=== PATIENT | male | born 1985 | race African-American/Black ===

== ENCOUNTER 2016-07-12 20:49 | Emergency (ER) | payer OTHER ==
[~2016-07-12] VITALS: Ht 180.3 cm; Wt 77.1 kg
[~2016-07-12 20:49] MED LIST: ACYCLOVIR400 MG ORAL; NKM
[2016-07-12] MEDS ORDERED: AMOXICILLIN875 MG PO (21:44)
[2016-07-12] MEDS ORDERED: DEBROX15 M1 BOTH EARS (21:44)
[2016-07-12 21:52] VITALS: BP 134/80
[2016-07-12 21:54] VITALS: BP 134/80
--- NOTE | 2016-07-13 05:43 | Emergency Room Report ---
History of Present Illness General Chief Complaint: Earache Source: Patient Present Illness HPI 31YOM with 2 days "left ear clogged" with pain. Denies Qtip use, trauma. Cleans ears with "a rag." Denies fever/chills, drainage from ear. Allergies: Coded Allergies: No Known Allergies (Unverified , 12/30/14) Patient History Past Medical History: none Past Surgical History: none Pertinent Family History: none Social History: Denies: alcohol use, drug use, smoking Immunizations: UTD Reviewed Nursing Documentation: PMH: Agreed, PSxH: Agreed Nursing Documentation-PMH Hx Asthma: Yes Review of Systems All Other Systems: negative except mentioned in HPI Physical Exam Vital Signs Date Time Temp Pulse Resp B/P Pulse Ox O2 Delivery O2 Flow Rate FiO2 07/12/16 21:02 98.1 78 16 134/80 100 Sp02 EP Interpretation: reviewed, normal General Appearance: normal inspection, well appearing, no apparent distress, alert, GCS 15, non-toxic Head: normocephalic, atraumatic Eyes: bilateral eye EOMI, bilateral eye PERRL ENT: normal ENT inspection, hearing grossly normal, normal pharynx, no angioedema, normal voice, other - Bilateral TMs with impacted cerumen. Left canal erythematous Neck: normal inspection, full range of motion, supple, no bony tend Respiratory: normal inspection, lungs clear, normal breath sounds, no respiratory distress, no retraction, no wheezing Cardiovascular #1: regular rate, rhythm, no edema Gastrointestinal: normal inspection, normal bowel sounds, non tender, soft, no guarding, no hernia Genitourinary: no CVA tenderness Musculoskeletal: normal inspection, back normal, normal range of motion, Keiko' s Sign negative Neurologic: normal inspection, alert, oriented x3, responsive, multifocal button generator III-XII nml as tested, speech normal Psychiatric: normal inspection, judgement/insight normal, mood/affect normal Skin: normal inspection Medical Decision Making Diagnostic Impression: Primary Impression: Earache, left Additional Impression: Otitis media, left Qualified Codes: H65.192 - Other acute nonsuppurative otitis media, left ear ER Course Bilateral impacted cerumen Patient declined my offer to currette our cerumen Rx Debrox, ABx for left otitis media Advised patient to return to ER for recheck of ears this week DC home Last Vital Signs Date Time Temp Pulse Resp B/P Pulse Ox O2 Delivery O2 Flow Rate FiO2 07/12/16 21:54 98.1 16 134/80 100 07/12/16 21:52 88 Status: improved Disposition: HOME, SELF-CARE Condition: Improved Scripts Amoxicillin (AMOXICILLIN) 875 Mg Tablet 875 MG PO Q12H for 7 Days, TAB 0 Refills Prov: JOVAN ALEXANDER M.D. 07/12/16 Carbamide Peroxide (DEBROX) 15 Ml Drops 10 DROP BOTH EARS TWICE A DAY for 4 Days, ML 0 Refills Prov: JOVAN ALEXANDER M.D. 07/12/16 Referrals: [facility]P) Patient Instructions: Otitis Media, Adult Additional Instructions: - Use ear drops as prescribed - Take ALL antibiotics until finished - Return to ER to recheck ears JOVAN ALEXANDER M.D. Jul 13, 2016 05:43
== END 2016-07-12 21:55 | disposition home or self-care (01) ==
LOC: EMR 21:12
DX: H66.92 Otitis media, unspecified, left ear (principal); J45.909 Unspecified asthma, uncomplicated
CPT/HCPCS: 99284

== ENCOUNTER 2017-10-24 19:20 | Emergency (ER) | payer OTHER ==
[~2017-10-24] VITALS: Ht 180.3 cm; Wt 74.8 kg
[~2017-10-24 19:20] MED LIST changes: +AMOXICILLIN875 MG PO; +DEBROX15 M1 BOTH EARS
--- NOTE | 2017-10-24 20:04 | Emergency Room Report ---
History of Present Illness General Chief Complaint: Skin Rash/Abscess Source: Patient, Medical Record Present Illness HPI Pt. presents to the ED c/o Itching, swelling, and erythema of right forearm x 2 days. Denies fevers or chills. Pt. denies pain at this time. Pt. denies swollen tender lymph nodes. Denies lesions/rashes elsewhere on the body. Denies new medications or body washes or creams. Denies swelling of the lips, tongue , throat or airway. Denies wheezing, or shortness of breath. Denies recent travel , recent illness or ill contacts. denies blisters, oral lesions, or sloughing of the skin. Allergies: Coded Allergies: No Known Allergies (Unverified , 12/30/14) Patient History Past Medical History: see triage record Past Surgical History: none Pertinent Family History: none Reviewed Nursing Documentation: PMH: Agreed; PSxH: Agreed Nursing Documentation-PMH Hx Asthma: Yes Review of Systems All Other Systems: negative except mentioned in HPI Physical Exam Vital Signs Date Time Temp Pulse Resp B/P (MAP) Pulse Ox O2 Delivery O2 Flow Rate FiO2 10/24/17 19:39 98.0 78 18 148/86 97 98.1 Sp02 EP Interpretation: reviewed, normal General Appearance: no apparent distress, alert, GCS 15, non-toxic Head: normocephalic, atraumatic Eyes: bilateral eye normal inspection, bilateral eye PERRL ENT: hearing grossly normal, normal voice, other - no swelling of the lips or tongue Neck: full range of motion Respiratory: lungs clear, normal breath sounds, speaking full sentences Cardiovascular #1: regular rate, rhythm, normal capillary refill Musculoskeletal: back normal, gait/station normal, normal range of motion Neurologic: alert, oriented x3, responsive, motor strength/tone normal, sensory intact, speech normal, grossly normal Psychiatric: judgement/insight normal Skin: no rash, warm/dry, well hydrated, other - Discrete/isolated insect bites to the dorsum of the right forearm with surrounding erythema, increased temperature palpation in 7 cm diameter area. No crusting, blisters, vesicles. Medical Decision Making PA Attestation Dr. Arizmendi is my supervising Physician whom patient management has been discussed with. Diagnostic Impression: Primary Impression: Cellulitis Qualified Codes: L03.90 - Cellulitis, unspecified Additional Impression: Insect bite Qualified Codes: W57.XXXA - Bitten or stung by nonvenomous insect and other nonvenomous arthropods, initial encounter ER Course Pt. presents to the ED c/o Itching, swelling, and erythema of right forearm x 2 days. Denies fevers or chills. Pt. denies pain at this time. Pt. denies swollen tender lymph nodes. Denies lesions/rashes elsewhere on the body. Denies new medications or body washes or creams. Denies swelling of the lips, tongue , throat or airway. Denies wheezing, or shortness of breath. Denies recent travel , recent illness or ill contacts. denies blisters, oral lesions, or sloughing of the skin. Ddx considered but are not limited to cellulitis, scabies, insect bites, tic bites, spider bites, contact dermatitis, Drug reaction, allergic reaction, fungal infection, lice. Vital signs: are WNL, pt. is afebrile H&PE are most consistent with Discrete/isolated insect bites to the dorsum of the right forearm with surrounding erythema, increased temperature palpation in 7 cm diameter area. No crusting, blisters, vesicles. ORDERS: none required at this time, the diagnosis is clinical ED INTERVENTIONS: None required at this time. - Skin pen used to renee affected area on the forearm. pt. given return to ED precautions for worsening of current symptoms or new symptoms. DISCHARGE: At this time pt. is stable for d/c to home. Will provide printed patient care instructions, and any necessary prescriptions. Care plan and follow up instructions have been discussed with the patient prior to discharge. Last Vital Signs Date Time Temp Pulse Resp B/P (MAP) Pulse Ox O2 Delivery O2 Flow Rate FiO2 10/24/17 19:39 98.0 78 18 148/86 97 98.1 Disposition: HOME, SELF-CARE Condition: Stable Scripts Diphenhydramine Hcl (BENADRYL ALLERGY) 25 Mg Tablet 25 MG PO Q6HR for Itching, #20 TAB Prov: Aracelis Abdalla 10/24/17 Hydrocortisone (Hydrocortisone Cream 2.5%) Y Cream.appl 1 APPLIC TP BID, #28.3 GM Prov: Aracelis Abdalla 10/24/17 Trimethoprim/Sulfamethoxazole 160/800* (BACTRIM DS TABLET*) 1 Each Tablet 1 TAB ORAL TWICE A DAY for 7 Days, #14 TAB Prov: Aracelis Abdalla 10/24/17 Cephalexin* (KEFLEX*) 500 Mg Capsule 500 MG ORAL EVERY 12 HOURS for 7 Days, #14 CAP 0 Refills Prov: Aracelis Abdalla 10/24/17 Referrals: [facility] ([facility]P) Patient Instructions: Cellulitis, [id number], Insect Bite, [id number] Additional Instructions: Take medications as directed. Follow up with a Primary Care Provider in 3-5 days, even if your symptoms have resolved. --Please review list of primary care clinics, if you do not already have a primary care provider Return sooner to ED if new symptoms occur, or current symptoms become worse. - Please note that this Emergency Department Report was dictated using [employer] project manager technology software, occasionally this can lead to erroneous entry secondary to interpretation by the dictation equipment. Aracelis Abdalla Oct 24, 2017 20:04
[2017-10-24] MEDS ORDERED: HYDROCORTISONE30 G2 TP (20:05)
[2017-10-24] MEDS ORDERED: BENADRYL ALLERG25 M1 PO (20:05)
[2017-10-24] MEDS ORDERED: CEPHALEXIN500 MG ORAL (20:05)
[2017-10-24] MEDS ORDERED: BACTRIM DS TAB1 EAC1 ORAL (20:05)
[2017-10-24 21:17] VITALS: BP 148/86
== END 2017-10-24 21:17 | disposition home or self-care (01) ==
LOC: EMR 19:48
DX: S50.861A Insect bite (nonvenomous) of right forearm, initial encounter (principal); L03.113 Cellulitis of right upper limb; W57.XXXA Bitten or stung by nonvenomous insect and other nonvenomous arthropods, initial encounter; Y93.89 Activity, other specified; Y92.9 Unspecified place or not applicable; J45.909 Unspecified asthma, uncomplicated
CPT/HCPCS: 99284

== ENCOUNTER 2018-01-25 23:53 | Emergency (ER) | payer OTHER ==
[~2018-01-25] VITALS: Ht 180.3 cm; Wt 72.6 kg
[~2018-01-25 23:53] MED LIST changes: +BACTRIM DS TAB1 EAC1 ORAL; +BENADRYL ALLERG25 M1 PO; +CEPHALEXIN500 MG ORAL; +HYDROCORTISONE30 G2 TP
--- NOTE | 2018-01-26 00:20 | Emergency Room Report ---
History of Present Illness General Chief Complaint: Generalized Weakness Source: Patient Present Illness HPI Is a 32-year-old male with no past medical history. He presents with chief complaint of syncope in September his weakness. The syncope occurred and day and half ago. He was standing talking to his friend when he felt vision get blurry and then he had a brief syncopal episode. No injury. Since then he felt weak and tired. He had this problem previously. This would be his fifth episode. Usually go to the ER and was told that he is dehydrated. Most the time when he stands up quickly go to do something he would had a syncopal episode. Not associated with sports. No family history of sudden . Have not seen a healthcare educator. Allergies: Coded Allergies: No Known Allergies (Unverified , 12/30/14) Patient History Past Medical History: see triage record, old chart reviewed Past Surgical History: none Pertinent Family History: none Social History: Denies: smoking Immunizations: other Reviewed Nursing Documentation: PMH: Agreed; PSxH: Agreed Nursing Documentation-PMH Past Medical History: No History, Except For Hx Asthma: Yes Review of Systems Constitutional: Reports: weakness Eye: Denies: eye pain, blurred vision ENT: Denies: ear pain, nose congestion, throat swelling Respiratory: Denies: cough, shortness of breath Cardiovascular: Denies: chest pain, palpitations Gastrointestinal: Denies: abdominal pain, diarrhea, nausea, vomiting Musculoskeletal: Denies: back pain, joint pain Skin: Denies: rash Neurological: Denies: headache, numbness Endocrine: Denies: increased thirst, increased urine Hematologic/Lymphatic: Denies: easy bruising All Other Systems: negative except mentioned in HPI Physical Exam Vital Signs Date Time Temp Pulse Resp B/P (MAP) Pulse Ox O2 Delivery O2 Flow Rate FiO2 01/25/18 23:57 97.5 62 16 131/82 99 Room Air vitals normal Sp02 EP Interpretation: reviewed, normal General Appearance: well appearing, no apparent distress, alert Head: normocephalic, atraumatic Eyes: bilateral eye PERRL, bilateral eye EOMI ENT: hearing grossly normal, normal pharynx Neck: full range of motion, supple, no meningismus Respiratory: chest non-tender, lungs clear, normal breath sounds Cardiovascular #1: regular rate, rhythm, no murmur Gastrointestinal: normal bowel sounds, non tender, no mass, no organomegaly, no bruit, non-distended Musculoskeletal: back normal, gait/station normal, normal range of motion Psychiatric: mood/affect normal Skin: warm/dry Medical Decision Making Diagnostic Impression: Primary Impression: Episode of generalized weakness Additional Impression: Syncope Qualified Codes: R55 - Syncope and collapse ER Course Patient with syncope. No evidence of ACS, PE, dissection to name a few. He has no family history of sudden . He will need follow-up with his primary care doctor for referral to see a healthcare educator. EKG Diagnostic Results Rate: normal Rhythm: NSR ST Segments: no acute changes Rhythm Strip Diag. Results Rhythm Strip Time: 00:20 EP Interpretation: yes Rate: 60 Rhythm: NSR, no PVC's, no ectopy Last Vital Signs Date Time Temp Pulse Resp B/P (MAP) Pulse Ox O2 Delivery O2 Flow Rate FiO2 01/25/18 23:57 97.5 62 16 131/82 99 Room Air Status: improved Disposition: HOME, SELF-CARE Condition: Stable Patient Instructions: Weakness Additional Instructions: Increase fluids. Follow-up your doctor within a week. You will need a referral to see a healthcare educator for a Holter monitor and/or echocardiogram. No strenuous activity or sports until seen by healthcare educator. Favio Richards MD Jan 26, 2018 00:20
[2018-01-26 00:26] LABS: BASOPHILS % (AUTO) 0.9 % (0.0-2.0); EOSINOPHILS % (AUTO) 3.9 % (0.0-3.0); HEMATOCRIT 43.8 % (42.0-52.0); LYMPHOCYTES % (AUTO) 33.4 % (20.0-45.0); MEAN CORPUSCULAR VOLUME 89 FL (80-99); MONOCYTES % (AUTO) 12.4 % (1.0-10.0); NEUTROPHILS % (AUTO) 49.4 % (45.0-75.0); PLATELET COUNT 227 K/UL (150-450); RED BLOOD COUNT 4.95 M/UL (4.70-6.10); RED CELL DISTRIBUTION WIDTH 12.2 % (11.6-14.8); WHITE BLOOD COUNT 8.1 K/UL (4.8-10.8)
[2018-01-26 00:27] LABS: APPEARANCE,URINE CLEAR; BILIRUBIN, URINE NEGATIVE (NEGATIVE); GLUCOSE, URINE (UA) NEGATIVE (NEGATIVE); KETONES,URINE 1+ (NEGATIVE); LEUKOCYTE ESTERASE ,URINE 1+ (NEGATIVE); NITRITE,URINE NEGATIVE (NEGATIVE); PH,URINE 6 (4.5-8.0); PROTEIN,URINE 1+ (NEGATIVE); UROBILINOGEN,URINE 1 MG/DL (0.0-1.0)
[2018-01-26 00:28] LABS: COLOR,URINE YELLOW
[2018-01-26 00:35] LABS: ANION GAP 8 mmol/L (5-15); BLOOD UREA NITROGEN 15 mg/dL (7-18); CALCIUM 8.9 MG/DL (8.5-10.1); CARBON DIOXIDE 29 MMOL/L (21-32); CHLORIDE 102 MMOL/L (98-107); CREATININE 1.1 MG/DL (0.55-1.30); POTASSIUM 3.9 MMOL/L (3.5-5.1); SODIUM 139 MMOL/L (136-145)
[2018-01-26 01:00] VITALS: BP 129/76
[2018-01-26 01:21] VITALS: BP 131/82
--- NOTE | 2018-01-28 15:18 | Cardiology Report ---
APPROVED REPORT EKG Measurement Heart [id number] MD [id number] Normal sinus rhythm with sinus arrhythmia Voltage criteria for left ventricular hypertrophy Abnormal ECG
== END 2018-01-26 01:26 | disposition home or self-care (01) ==
LOC: EMR 01-26 00:14
DX: R53.1 Weakness (principal); R55 Syncope and collapse; J45.909 Unspecified asthma, uncomplicated
CPT/HCPCS: 36415; 80048; 81001; 85025; 93005; 96360; 99284

== ENCOUNTER 2018-02-08 17:44 | Emergency (ER) | payer OTHER ==
[~2018-02-08] VITALS: Ht 180.3 cm; Wt 77.1 kg
[2018-02-08] MEDS ORDERED: NKM (17:53)
[2018-02-08 17:57] VITALS: BP 126/77
[2018-02-08] MEDS ORDERED: ACYCLOVIR400 MG ORAL (18:00)
--- NOTE | 2018-02-08 18:00 | Emergency Room Report ---
History of Present Illness General Chief Complaint: male urogenital problem Present Illness HPI 32-year-old male patient presents ER complaining of herpes outbreak on his genitalia. Reports history of similar symptoms in the past. States current outbreak began 2 days ago. Reports headache lesions on penis. Denies dysuria, hematuria, penile discharge. Reports assess for STI 2 months ago, results were negative. Requesting herpes medication. Denies fever, chest pain, shortness breath, abdominal pain. Reports no recent sexual activity. Allergies: Coded Allergies: No Known Allergies (Unverified , 12/30/14) Patient History Past Medical History: see triage record Reviewed Nursing Documentation: PMH: Agreed; PSxH: Agreed Nursing Documentation-PMH Hx Asthma: Yes Review of Systems All Other Systems: negative except mentioned in HPI Physical Exam Vital Signs Date Time Temp Pulse Resp B/P (MAP) Pulse Ox O2 Delivery O2 Flow Rate FiO2 02/08/18 17:50 98.4 89 16 126/77 96 Room Air Sp02 EP Interpretation: reviewed, normal General Appearance: well appearing, no apparent distress, alert, GCS 15, non- toxic Head: normocephalic, atraumatic Eyes: bilateral eye normal inspection, bilateral eye PERRL ENT: hearing grossly normal, normal pharynx, no angioedema, normal voice, uvula midline, moist mucus membranes Neck: full range of motion Respiratory: lungs clear, normal breath sounds, no rhonchi, no respiratory distress, no accessory muscle use, no wheezing, speaking full sentences Cardiovascular #1: regular rate, rhythm, no edema Genitourinary: no CVA tenderness, penis normal - uncircumcised, scrotum normal Musculoskeletal: back normal, digits/nails normal, gait/station normal, normal range of motion, non-tender Neurologic: alert, oriented x3, responsive, motor strength/tone normal, sensory intact Psychiatric: mood/affect normal Lymphatic: other - multiple small unroofed herpetic lesions at base of penis or scrotum, no active drainage, no surrounding erythema or edema, nontender to palpation, no chancre Medical Decision Making PA Attestation Dr. Weller is my supervising Physician whom patient management has been discussed with. Diagnostic Impression: Primary Impression: Herpes ER Course Pt. presents to the ED c/o herpes outbreak on genitalia. Ddx considered but are not limited to atopic dermatitis, herpes, syphilis, cellulitis. Vital signs: are WNL, pt. is afebrile ER COURSE: Physical exam consistent with obvious herpes outbreak. Provide patient with acyclovir discharge. ER precautions given. Wear condoms during sex. DISCHARGE: -Rx given for Acyclovir, 400mg TID x7 days. At this time pt. is stable for d/c to home. Patient is resting comfortably in no acute distress, nontoxic appearing. Will provide printed patient care instructions, and any necessary prescriptions. Patient instructed to follow with primary care provider in 3-5 days for further treatment and referral as needed. Informed patient breakouts may occur during periods of stress or illness. Discuss future treatment options to prevent breakouts with patient; informed patient to discuss with primary care provider. Care plan and follow up instructions have been discussed with the patient prior to discharge. Patient reports understanding and agreement to treatment plan. Patient questions asked and answered. ER precautions given, patient instructed to return to ER immediately for any new or worsening of symptoms. - Please note that this Emergency Department Report was dictated using [employer] pot technology software, occasionally this can lead to erroneous entry secondary to interpretation by the dictation equipment. Disposition: HOME, SELF-CARE Condition: Stable Scripts Acyclovir* (ACYCLOVIR*) 400 Mg Tablet 400 MG ORAL TID, #30 TAB Prov: Cisco Clement 02/08/18 Patient Instructions: Genital Herpes Additional Instructions: Followup with primary care provider and followup with STI clinic for further evaluation and treatment. Alert sexual partners for need for evaluation and treatment. Wear condoms during sex. Avoid sexual activity for 2 weeks. Take Tylenol for pain symptoms. Drink plenty of fluids. Patient questions asked and answered. ER precautions given, patient instructed to return to ER immediately for any new or worsening of symptoms. Cisco Clement Feb 08, 2018 18:00
[2018-02-08 18:09] VITALS: BP 118/74
== END 2018-02-08 19:00 | disposition home or self-care (01) ==
LOC: EMR 18:59
DX: B00.9 Herpesviral infection, unspecified (principal)
CPT/HCPCS: 99282

== ENCOUNTER 2019-12-27 | Emergency (ER) | payer OTHER ==
[~2019-12-27] VITALS: Ht 180.3 cm; Wt 77.1 kg
--- NOTE | 2019-12-27 00:07 | NUR ---
ED Nurse Note: Patient walked in from home c/o a rash or "breakout" on his penis. Patient reports he has a history of herpes. Patient aao x 4 and ambulatory with steady gait. Denies pain. Patient stable upon assessment.
[2019-12-27 00:08] VITALS: BP 123/79
[2019-12-27] MEDS ORDERED: ACYCLOVIR400 MG ORAL (00:09)
--- NOTE | 2019-12-27 00:15 | Emergency Room Report ---
History of Present Illness General Chief Complaint: Male Urogenital Problems Source: Patient Present Illness HPI 34-year-old male with a history of genital herpes here with a herpes breakout. Patient says that he has been out of his acyclovir for several months. Patient says that he began to notice some small vesicles erupting at the base of the shaft of his penis. No discharge. No urethritis. No dysuria or testicular pain. 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 COVID-19 Screening: Negative COVID-19 COVID-19 Testing Source: 2 months ago Nursing Documentation-[facility] Past Medical History: No Stated History Hx Asthma: Yes Review of Systems All Other Systems: negative except mentioned in HPI Physical Exam Vital Signs Date Time Temp Pulse Resp B/P (MAP) Pulse Ox O2 Delivery O2 Flow Rate FiO2 12/27/19 00:04 98.2 74 16 132/63 (86) 98 Room Air Sp02 EP Interpretation: reviewed, normal General Appearance: no apparent distress, alert, GCS 15, non-toxic Head: normocephalic, atraumatic Eyes: bilateral eye normal inspection, bilateral eye PERRL ENT: hearing grossly normal, normal pharynx, no angioedema, normal voice Neck: full range of motion, supple/symm/no masses Respiratory: chest non-tender, lungs clear, normal breath sounds, speaking full sentences Cardiovascular #1: regular rate, rhythm, no edema Cardiovascular #2: 2+ carotid (R), 2+ carotid (L), 2+ radial (R), 2+ radial (L), 2+ dorsalis pedis (R), 2+ dorsalis pedis (L) Gastrointestinal: normal bowel sounds, non tender, soft, non-distended, no guarding, no rebound Rectal: deferred Genitourinary: no CVA tenderness, other - Several very small vesicles at the base of the penis on the dorsal aspect Musculoskeletal: back normal, normal range of motion, gait/station normal, non-tender Neurologic: alert, motor strength/tone normal, sensory intact, responsive, speech normal Psychiatric: judgement/insight normal, memory normal, mood/affect normal, no suicidal/homicidal ideation Lymphatic: no adenopathy Medical Decision Making Diagnostic Impression: Primary Impression: Herpes Additional Impression: Genital herpes ER Course 34-year-old male with history of genital herpes here with vesicles at the base of his penis. Patient noticed the symptoms earlier today. Symptoms were consistent with patient's history of genital herpes. He was given a dose of acyclovir in the emergency department and a prescription for 7 days worth of acyclovir. We will follow-up with primary care. Discharged in stable condition. Last Vital Signs Date Time Temp Pulse Resp B/P (MAP) Pulse Ox O2 Delivery O2 Flow Rate FiO2 12/27/19 00:08 98.2 79 16 123/79 98 Room Air Disposition: HOME, SELF-CARE Condition: Stable Scripts Acyclovir* (ACYCLOVIR*) 400 Mg Tablet 400 MG ORAL TID for 7 Days, TAB Prov: Noe Paige M.D. 12/27/19 Referrals: [facility] Patient Instructions: Genital Herpes Additional Instructions: Please follow-up with your primary care doctor in the next 1 to 3 days to discus s this emergency department visit and for reevaluation. If you have any new or worsening symptoms please return to the emergency department for reevaluation. Noe Paige M.D. Dec 27, 2019 00:15
[2019-12-27 00:19] VITALS: BP 121/75
--- NOTE | 2019-12-27 00:19 | NUR ---
ER DISCHARGE NOTE: Patient is cleared to be discharged per ERMD, pt is aox4, on room air, with stable vital signs. pt was given dc and prescription instructions, pt was able to verbalize understanding, pt id band removed. pt is able to ambulate with steady gait. pt took all belongings. pt stable upon discharge.
== END 2019-12-27 00:19 | disposition home or self-care (01) ==
LOC: EMR 00:10
DX: A60.01 Herpesviral infection of penis (principal); J45.909 Unspecified asthma, uncomplicated; Z79.899 Other long term (current) drug therapy
CPT/HCPCS: 99282

== ENCOUNTER 2020-02-08 17:21 | Emergency (ER) | payer OTHER ==
[~2020-02-08] VITALS: Ht 180.3 cm; Wt 77.1 kg
[2020-02-08 17:35] VITALS: BP 134/84
--- NOTE | 2020-02-08 17:35 | NUR ---
ED Nurse Note: Pt ambulated to ED from home d/t suture eval on his penile area. Pt is AOx4, calm and cooperative, pt's VSS, on RA,. afebrile on triage. Pt denies any pain nor discomfort, per pt, "I just want to make sure there's nothing wrong with it". ERPA and RN at pt's bedside.
--- NOTE | 2020-02-08 17:56 | Emergency Room Report ---
History of Present Illness General Chief Complaint: Wound Recheck/Suture Removal Source: Patient Present Illness HPI 34-year-old male with no signal past medical history here status post circumcision requesting wound check. Patient had the procedure done 2 weeks ago and sutures to be removed in 1 week by surgeon. Denies any fever and chills and pus drainage and here requesting a wound check to see if the wound is healing properly. In no distress. Has finished antibiotic and is currently in pain medication. 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 Patient History Past Medical History: see triage record Past Surgical History: none Pertinent Family History: none Immunizations: UTD Reviewed Nursing Documentation: PMH: Agreed; PSxH: Agreed Nursing Documentation-PMH Past Medical History: No History, Except For Hx Asthma: Yes Review of Systems All Other Systems: negative except mentioned in HPI Physical Exam Vital Signs Date Time Temp Pulse Resp B/P (MAP) Pulse Ox O2 Delivery O2 Flow Rate FiO2 02/08/20 17:29 98.4 64 16 134/84 (101) 99 Room Air Sp02 EP Interpretation: reviewed, normal General Appearance: well appearing, no apparent distress Head: normocephalic ENT: hearing grossly normal, normal voice Neck: full range of motion, supple Respiratory: no respiratory distress, speaking full sentences Cardiovascular #1: normal inspection Gastrointestinal: soft Genitourinary: other - Many sutures placed in around penile gland all intact and no pus drainage noted Musculoskeletal: no calf tenderness Neurologic: alert, normal gait Psychiatric: mood/affect normal Skin: no rash Lymphatic: no adenopathy Medical Decision Making PA Attestation ALL Diagnosis and treatment plan reviewed and discussed with my supervising physician Dr. Paige Diagnostic Impression: Primary Impression: Encounter for postoperative wound check ER Course 34-year-old male with no signal past medical history here status post circumcision requesting wound check. Patient had the procedure done 2 weeks ago and sutures to be removed in 1 week by surgeon. Denies any fever and chills and pus drainage and here requesting a wound check to see if the wound is healing properly. In no distress. Has finished antibiotic and is currently in pain medication. Ddx considered but are not limited to : Cellulitis, postop wound infection, healing wounds, Vital signs: are WNL, pt. is afebrile H&PE are most consistent with: Healing wound ORDERS: None ED INTERVENTIONS: None required at this time. I examined the patient with my nurse Becca in the room. Patient reports that has Neosporin at home will apply and will follow-up with her surgeon. Advised patient return to emergency room if worsening symptoms. DISCHARGE: At this time pt. is stable for d/c to home. Will provide printed patient care instructions, and any necessary prescriptions. Care plan and follow up instructions have been discussed with the patient prior to discharge. Last Vital Signs Date Time Temp Pulse Resp B/P (MAP) Pulse Ox O2 Delivery O2 Flow Rate FiO2 02/08/20 17:29 98.4 64 16 134/84 (101) 99 Room Air Disposition: HOME, SELF-CARE Condition: Stable Additional Instructions: Take medication as directed, follow-up with your surgeon, if worsening symptoms return to the emergency room Israel Hernandez Feb 08, 2020 17:56
[2020-02-08] MEDS ORDERED: VOLTAREN100 G1 TP (17:57)
[2020-02-08] MEDS ORDERED: ROBAXIN-500MG ORAL (17:57)
[2020-02-08 18:16] VITALS: BP 130/82
--- NOTE | 2020-02-08 18:16 | NUR ---
ER DISCHARGE NOTE: Patient is cleared to be discharged per ERPA, pt is aox4, on room air, with stable vital signs. pt was given dc and prescription instructions, pt was able to verbalize understanding, pt id band removed. pt is able to ambulate with steady gait. pt took all belongings.
== END 2020-02-08 18:16 | disposition home or self-care (01) ==
LOC: EMR 17:50
DX: Z48.89 Encounter for other specified surgical aftercare (principal); Z98.890 Other specified postprocedural states; J45.909 Unspecified asthma, uncomplicated
CPT/HCPCS: 99281

== ENCOUNTER 2020-03-01 08:36 | Emergency (ER) | payer OTHER ==
[~2020-03-01] VITALS: Ht 180.3 cm; Wt 81.6 kg
[~2020-03-01 08:36] MED LIST changes: +ROBAXIN-500MG ORAL; +VOLTAREN100 G1 TP
--- NOTE | 2020-03-01 08:48 | NUR ---
ED Nurse Note: PT AMBULATED TO ED STATING THAT HE HAD STITCHES PLACED AT ANOTHER CLINIC ON THE GLANS OF HIS PENIS X 1 MONTH AGO. "STITCHES HAD DISOLVED I WANT TO MAKE SURE ITS HEALING PROPERLY". SITE ASSESSED, APPEARS CLEAN, DRY, AND INTACT. NO NOTABLE INFECTIONS OR DISCOLORATION, NOR SWELLING. PT HAS NO OTHER COMPLAINTS AND DENIES PAIN.
[2020-03-01 08:52] VITALS: BP 146/89
--- NOTE | 2020-03-01 08:56 | NUR ---
ED Nurse Note: ERMD AT BEDSIDE ASSESSING PT.
[2020-03-01 08:57] VITALS: BP 133/85
--- NOTE | 2020-03-01 08:57 | NUR ---
ER DISCHARGE NOTE: Patient is cleared to be discharged per ERMD, pt is aox4, on room air, with stable vital signs. pt was given dc instructions, pt was able to verbalize understanding, pt id band removed. pt is able to ambulate with steady gait. pt took all belongings.
--- NOTE | 2020-03-01 09:01 | Emergency Room Report ---
History of Present Illness General Chief Complaint: Wound Recheck/Suture Removal Source: Patient Present Illness HPI Disclaimer: Please note that this report is being documented using [employer] technology. This can lead to erroneous entry secondary to incorrect interpretation by the dictating instrument. HPI: 34-year-old male presents for evaluation of wound check. The patient had a circumcision approximately 1 month ago and came to check his healing progress. Unable to see his surgeon this week due to schedule conflicts. He states his stitches dissolved approximately 1 week ago. No bleeding, no swelling, no dehiscence, no purulent drainage, no fever, no chills. Denies difficulty urinating or other symptoms. He is concerned over bumpy appearance over the suture lines. Denies pain, vesicles, skin breakdown or ulcerations. 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 EOMI. Resp: Normal work of breathing : Circumcised male. Wounds are well-healed. No dehiscence, no erythema, no edema, no bleeding, no purulent drainage. No sutures found. Skin: Intact. No abrasions, laceration, vesicles, ulcers or rash over the exposed skin MSK: Normal tone and bulk. Moving all extremities. No obvious deformity. Neuro: Awake and alert. Mentating appropriately Medical Decision Making Diagnostic Impression: Primary Impression: Encounter for wound re-check ER Course 34-year-old male presents for wound check of recent circumcision. Appears to have healed well. Stitches have dissolved and I find none that are are still intact. The bumpy appearance he is concerned about appear to be tension alcala from the sutures. I find no evidence of infection, dehiscence or other post surgical problems otherwise well-appearing. Will discharge and follow-up with his surgeon as needed. Can return with new or worsening symptoms. Last Vital Signs Date Time Temp Pulse Resp B/P (MAP) Pulse Ox O2 Delivery O2 Flow Rate FiO2 03/01/20 08:52 97.9 63 18 146/89 97 Room Air Disposition: HOME, SELF-CARE Condition: Stable Referrals: [facility]ERR[facility] (PCP) Patient Instructions: Wound Check Additional Instructions: Follow-up with your surgeon as scheduled. Return with new or worsening symptoms. Anoop Bañuelos MD Mar 01, 2020 09:01
== END 2020-03-01 08:57 | disposition home or self-care (01) ==
LOC: EMR 08:43
DX: Z09 Encounter for follow-up examination after completed treatment for conditions other than malignant neoplasm (principal); Z98.890 Other specified postprocedural states; J45.909 Unspecified asthma, uncomplicated
CPT/HCPCS: 99282

== ENCOUNTER 2020-05-04 07:37 | Emergency (ER) | payer OTHER ==
[~2020-05-04] VITALS: Ht 180.3 cm; Wt 81.6 kg
[2020-05-04 07:55] VITALS: BP 136/79
--- NOTE | 2020-05-04 08:10 | NUR ---
ED Nurse Note: pt stated he is having an outbreak of genital herpes and doesn't have any medication. stated that the blisters showed up yesterday. pt stated that his right ear feels clogged up too.
[2020-05-04] MEDS ORDERED: VALACYCLOVIR500 MG ORAL (08:16)
[2020-05-04] MEDS ORDERED: DEBROX15 M1 BOTH EARS (08:16)
--- NOTE | 2020-05-04 08:19 | NUR ---
ER DISCHARGE NOTE: Patient is cleared to be discharged per ERMD, pt is aox4, on room air, with stable vital signs. pt was given dc and prescription instructions, pt was able to verbalize understanding. pt is able to ambulate with steady gait. pt took all belongings.
--- NOTE | 2020-05-04 08:31 | Emergency Room Report ---
History of Present Illness General Chief Complaint: Male Urogenital Problems Source: Patient Present Illness HPI Patient is a 35-year-old male presents for possible herpes outbreak. Prior history of herpes in the past. Reports having increased genital blistering. Also reports having bilateral decreased hearing and fullness feeling. Denies any fever. Reports having some dysuria. Denies any other locations of discomfort. Had previously been on acyclovir. Denies taking other medications. Allergies: Coded Allergies: No Known Allergies (Unverified , 12/30/14) COVID-19 Screening Contact w/high risk pt: No Experienced COVID-19 symptoms?: No COVID-19 Testing performed REDIPPER: No Patient History Past Medical History: see triage record Reviewed Nursing Documentation: PMH: Agreed; PSxH: Agreed Nursing Documentation-PMH Hx Asthma: Yes Hx Gastrointestinal Problems: No - HERPES Review of Systems All Other Systems: negative except mentioned in HPI Physical Exam Vital Signs Date Time Temp Pulse Resp B/P (MAP) Pulse Ox O2 Delivery O2 Flow Rate FiO2 05/04/20 07:51 98.2 66 18 136/79 (98) 95 Room Air Sp02 EP Interpretation: reviewed, normal General Appearance: normal inspection, well appearing, no apparent distress, alert, GCS 15 Head: atraumatic ENT: hearing grossly normal, normal voice, other - Bilateral cerumen impaction. Neck: normal inspection, full range of motion, supple, no bony tend Respiratory: normal inspection, lungs clear, normal breath sounds, no respiratory distress, no retraction, no wheezing Cardiovascular #1: regular rate, rhythm, no edema Gastrointestinal: normal inspection, normal bowel sounds, non tender, soft, no guarding, no hernia Genitourinary: no CVA tenderness, other - Multiple vesicular lesions to the dorsum of the penis shaft. 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 Differential diagnosis include was not limited to herpes, to contact dermatitis, molluscum contagiosum among others. Patient has a benign exam and does not appear to require any imaging or laboratory testing at this time. Patient appears to have genital herpes outbreak. He will be given prescription for valacyclovir. Additionally patient has bilateral cerumen impaction which is not causing any acute problems. He was given prescription for Debrox as well. Patient is advised to follow-up with his primary care physician for recheck. He was advised to return if any worsening condition or any new concerns. This medical record is generated with [employer] billboard mechanic software. There may be some billboard mechanic discrepancies related to use of this software Last Vital Signs Date Time Temp Pulse Resp B/P (MAP) Pulse Ox O2 Delivery O2 Flow Rate FiO2 05/04/20 07:55 98.2 18 136/79 95 Room Air 05/04/20 07:51 66 Status: improved Disposition: HOME, SELF-CARE Condition: Stable Scripts Carbamide Peroxide (DEBROX) 15 Ml Drops 5 DROP BOTH EARS TWICE A DAY for 4 Days, #15 ML 0 Refills Prov: Dk Arizmendi MD 05/04/20 Valacyclovir Hcl* (VALTREX*) 500 Mg Tablet 1000 MG ORAL TWICE A DAY, #14 TAB Prov: Dk Arizmendi MD 05/04/20 Referrals: NON PHYSICIAN (PCP) Patient Instructions: Genital Herpes Dk Arizmendi MD May 04, 2020 08:30
== END 2020-05-04 08:21 | disposition home or self-care (01) ==
LOC: EMR 08:07
DX: A60.00 Herpesviral infection of urogenital system, unspecified (principal); H61.23 Impacted cerumen, bilateral; R30.0 Dysuria
CPT/HCPCS: 99282